=== PATIENT | male | born 1940 | race Two or more races ===

== ENCOUNTER → 2017-02-23 | Outpatient (CLI) | payer MEDICARE, OTHER ==
--- NOTE | ~2017-02-23 | US136 ---
[facility] A Service of [facility] & [facility] RADIOLOGY TEXT RESULTS PATIENT: LUX GARCIA LOCATION: CNIV : 42 UNIT #: [id number] AGE: [address]: Kashmir Chatman DPM SEX: M ORDER DR: [id number] [facility] [address] [place], [place] [address] [id number] O MR#: [id number] Acc #: [id number] NAME: LUX GARCIA : 1940 SEX: M STUDY DATE/TIME: 02/23/2017 15:03 UNIT: CNIV ROOM: STUDY DESCRIPTION: U/L [facility] [employer] Attending Physician: Kashmir Chatman D.P.M. Referring Physician: Kashmir Chatman D.P.M. Ordering Physician: Kashmir Chatman D.P.M. Primary Care Physician: No Primary Care Physician MEDICAL IMAGING REPORT This report is preliminary unless electronic signature is present EXAM Ankle-brachial indices. DATE OF EXAM 02/23/2017 INDICATIONS 76-year-old male with peripheral vascular disease, diabetes, hyperlipidemia, bilateral claudication, numbness tingling and edema. FINDINGS Brachial pressure is 154. The right ankle pressure is 85. The right RAMONA is 0.55. The left ankle pressure is 82. The left RAMONA is 0.53. The toe brachial index on the right is 0.36 and on the left is 0.38. IMPRESSION Decreased ABIs bilaterally. 0.55 on the right and 0.53 and the left. 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 Dictated by... Alonso Hahn M.D. THIS IS AN ELECTRONICALLY VERIFIED REPORT Alonso Hahn M.D. at 02/23/2017 9:52 PM JOSE/thierry TD: 02/23/2017 20:57 JOB #: [id number] MEDICAL IMAGING REPORT Page 1 of 1 COPY
== END | disposition home or self-care (01) ==
LOC: CNIV 14:55
DX: I73.9 Peripheral vascular disease, unspecified (principal); R93.6 Abnormal findings on diagnostic imaging of limbs
CPT/HCPCS: 93922